=== PATIENT | male | born 1980 | race Caucasian/White ===

== ENCOUNTER 2018-10-13 01:10 | Emergency (ER) | payer OTHER ==
[2018-10-13] MEDS: IBUPROFEN 800 MG TAB PO (01:39)
== END 2018-10-13 03:02 | disposition home or self-care (01) ==
LOC: FTE 01:10
DX: M10.9 Gout, unspecified (principal); I80.9 Phlebitis and thrombophlebitis of unspecified site
CPT/HCPCS: 93971; 99284-25